=== PATIENT | female | born 1990 | race Caucasian/White ===

== ENCOUNTER 2017-08-22 05:44 | Emergency (ER) | payer OTHER ==
--- NOTE | 2017-08-22 06:05 | ER Report ---
History and Physical Time Seen By MD: 06:05 Hx. of Stated Complaint: patient states she has been having pain in left flank for a couple of days and then she woke up at 0300 with severe right flank pain, nausea and vomiting. patient also reports diarrhea. (OWEN FITCH MD) HPI/ROS CHIEF COMPLAINT: Right flank pain HISTORY OF PRESENT ILLNESS: This is a 27-year-old female. She has been having some pain in her left back for a couple of days, this is mild pain and she thought that she may have pulled a muscle or something while being active, however this morning at about 0300 hours she awoke with severe right flank pain which was higher up in her back and more severe. This was associated with nausea and vomiting. She also reported a little bit of diarrhea. Nothing makes the pain worse or better. It seems to be a little bit better right now. She is no longer having the nausea. She denies any abdominal pain. She is not short of breath and has no chest pain. No reported fevers or chills. No reported dysuria or urinary problems recently. (OWEN FITCH MD) Allergies: Coded Allergies: No Known Drug Allergies (Unverified , 08/22/17) Home Meds No Active Prescriptions or Reported Meds Reviewed Nurses Notes: Yes (OWEN FITCH MD) Constitutional Vital Sign - Last 24 Hours 08/22/17 08/22/17 08/22/17 08/22/17 05:48 06:00 06:14 06:29 Temp 97.7 Pulse 88 86 90 Resp 16 B/P (MAP) 120/83 106/61 (76) Pulse Ox 96 98 100 08/22/17 06:30 B/P (MAP) 108/71 (83) (DIEGO FOY MD) Physical Exam General Appearance: The patient is alert. Mild acute distress due to pain. Eyes: Pupils are equal, round. No pallor, injection or icterus. ENT: Mucous membranes are moist. Normal oral mucosa. Posterior oropharynx is normal. Neck: Supple and non-tender Respiratory: Lungs are clear to auscultation. Cardiovascular: Regular rate and rhythm. No murmurs, gallops or rubs. Gastrointestinal: Abdomen is soft and non tender. Nondistended. Normal active bowel sounds. Some right sided CVA tenderness. Neurological: Alert and oriented x3. No focal neurologic deficits Skin: Warm and dry. No rashes. Musculoskeletal: Extremities are nontender. Full range of motion. No tenderness in palpation of the cervical, thoracic and lumbar spine. DIFFERENTIAL DIAGNOSIS: After history and physical exam, differential diagnosis was considered for flank pain including but not limited to musculoskeletal causes, kidney stone, pyelonephritis, shingles, and intra-abdominal causes such as diverticulitis and appendicitis. (OWEN FITCH MD) Medical Decision Making Data Points Result Diagram: 08/22/17 0600 08/22/17 0600 Laboratory Hematology Test 08/22/17 06:00 08/22/17 07:24 Red Blood Count 4.34 M/uL (4.17-5.56) Mean Corpuscular Volume 92.9 fL (80.0-96.0) Mean Corpuscular Hemoglobin 32.3 pg (26.0-33.0) Mean Corpuscular Hemoglobin Concent 34.7 g/dL (32.0-36.0) Red Cell Distribution Width 12.8 % (11.5-14.5) Mean Platelet Volume 8.1 fL (7.2-11.1) Neutrophils (%) (Auto) 46.7 % (39.4-72.5) Lymphocytes (%) (Auto) 37.8 % (17.6-49.6) Monocytes (%) (Auto) 12.0 % (4.1-12.4) Eosinophils (%) (Auto) 2.6 % (0.4-6.7) Basophils (%) (Auto) 0.9 % (0.3-1.4) Nucleated RBC Relative Count (auto) 0.0 /100WBC Neutrophils # (Auto) 1.7 K/uL (2.0-7.4) Lymphocytes # (Auto) 1.4 K/uL (1.3-3.6) Monocytes # (Auto) 0.4 K/uL (0.3-1.0) Eosinophils # (Auto) 0.1 K/uL (0.0-0.5) Basophils # (Auto) 0.0 K/uL (0.0-0.1) Nucleated RBC Absolute Count (auto) 0.00 K/uL Sodium Level 138 mmol/L (137-145) Potassium Level 4.1 mmol/L (3.5-5.0) Chloride Level 104 mmol/L (98-107) Carbon Dioxide Level 22 mmol/L (22-31) Blood Urea Nitrogen 10 mg/dl (7-18) Creatinine 0.70 mg/dl (0.52-1.04) Glomerular Filtration Rate Calc > 60.0 Random Glucose 125 mg/dl (75-110) Lactate 1.1 mmol/L (0.7-2.1) Calcium Level 9.6 mg/dl (8.4-10.2) Total Bilirubin 1.1 mg/dl (0.2-1.3) Aspartate Amino Transf (AST/SGOT) 24 U/L (0-35) Alanine Aminotransferase (ALT/SGPT) 27 U/L (0-56) Alkaline Phosphatase 47 U/L (0-126) Total Protein 7.1 gm/dl (6.3-8.2) Albumin 4.2 g/dl (3.5-5.0) Amylase Level 51 U/L (0-110) Lipase 121 U/L (23-300) Human Chorionic Gonadotropin, Qual Negative (NEGATIVE) Urine Color Yellow Urine Clarity Clear Urine pH 5.0 pH (4.8-9.5) Urine Specific [place] 1.015 Urine Protein Negative mg/dL (NEGATIVE) Urine Glucose (UA) Negative mg/dL (NEGATIVE) Urine Ketones Trace mg/dL (NEGATIVE) Urine Blood Negative (NEGATIVE) Urine Nitrite Negative (NEGATIVE) Urine Bilirubin Negative (NEGATIVE) Urine Urobilinogen Negative mg/dL (0.2-1.9) Urine Leukocyte Esterase Negative (NEGATIVE) Urine RBC 1 /HPF (0-2/HPF) Urine WBC 1 /HPF (0-5/HPF) Urine Squamous Epithelial Cells Many /LPF (</=FEW) Urine Bacteria Negative /HPF (NONE-FEW) Urine Mucus Few /HPF (NONE-FEW) Chemistry Test 08/22/17 06:00 08/22/17 07:24 White Blood Count 3.6 k/uL (4.5-11.0) Red Blood Count 4.34 M/uL (4.17-5.56) Hemoglobin 14.0 g/dL (12.0-16.0) Hematocrit 40.3 % (34.0-47.0) Mean Corpuscular Volume 92.9 fL (80.0-96.0) Mean Corpuscular Hemoglobin 32.3 pg (26.0-33.0) Mean Corpuscular Hemoglobin Concent 34.7 g/dL (32.0-36.0) Red Cell Distribution Width 12.8 % (11.5-14.5) Platelet Count 241 K/uL (150-450) Mean Platelet Volume 8.1 fL (7.2-11.1) Neutrophils (%) (Auto) 46.7 % (39.4-72.5) Lymphocytes (%) (Auto) 37.8 % (17.6-49.6) Monocytes (%) (Auto) 12.0 % (4.1-12.4) Eosinophils (%) (Auto) 2.6 % (0.4-6.7) Basophils (%) (Auto) 0.9 % (0.3-1.4) Nucleated RBC Relative Count (auto) 0.0 /100WBC Neutrophils # (Auto) 1.7 K/uL (2.0-7.4) Lymphocytes # (Auto) 1.4 K/uL (1.3-3.6) Monocytes # (Auto) 0.4 K/uL (0.3-1.0) Eosinophils # (Auto) 0.1 K/uL (0.0-0.5) Basophils # (Auto) 0.0 K/uL (0.0-0.1) Nucleated RBC Absolute Count (auto) 0.00 K/uL Glomerular Filtration Rate Calc > 60.0 Lactate 1.1 mmol/L (0.7-2.1) Calcium Level 9.6 mg/dl (8.4-10.2) Total Bilirubin 1.1 mg/dl (0.2-1.3) Aspartate Amino Transf (AST/SGOT) 24 U/L (0-35) Alanine Aminotransferase (ALT/SGPT) 27 U/L (0-56) Alkaline Phosphatase 47 U/L (0-126) Total Protein 7.1 gm/dl (6.3-8.2) Albumin 4.2 g/dl (3.5-5.0) Amylase Level 51 U/L (0-110) Lipase 121 U/L (23-300) Human Chorionic Gonadotropin, Qual Negative (NEGATIVE) Urine Color Yellow Urine Clarity Clear Urine pH 5.0 pH (4.8-9.5) Urine Specific [place] 1.015 Urine Protein Negative mg/dL (NEGATIVE) Urine Glucose (UA) Negative mg/dL (NEGATIVE) Urine Ketones Trace mg/dL (NEGATIVE) Urine Blood Negative (NEGATIVE) Urine Nitrite Negative (NEGATIVE) Urine Bilirubin Negative (NEGATIVE) Urine Urobilinogen Negative mg/dL (0.2-1.9) Urine Leukocyte Esterase Negative (NEGATIVE) Urine RBC 1 /HPF (0-2/HPF) Urine WBC 1 /HPF (0-5/HPF) Urine Squamous Epithelial Cells Many /LPF (</=FEW) Urine Bacteria Negative /HPF (NONE-FEW) Urine Mucus Few /HPF (NONE-FEW) Urinalysis Test 08/22/17 07:24 Urine Color Yellow Urine Clarity Clear Urine pH 5.0 pH (4.8-9.5) Urine Specific [place] 1.015 Urine Protein Negative mg/dL (NEGATIVE) Urine Glucose (UA) Negative mg/dL (NEGATIVE) Urine Ketones Trace mg/dL (NEGATIVE) Urine Blood Negative (NEGATIVE) Urine Nitrite Negative (NEGATIVE) Urine Bilirubin Negative (NEGATIVE) Urine Urobilinogen Negative mg/dL (0.2-1.9) Urine Leukocyte Esterase Negative (NEGATIVE) Urine RBC 1 /HPF (0-2/HPF) Urine WBC 1 /HPF (0-5/HPF) Urine Squamous Epithelial Cells Many /LPF (</=FEW) Urine Bacteria Negative /HPF (NONE-FEW) Urine Mucus Few /HPF (NONE-FEW) (DIEGO FOY MD) EKG/Imaging Imaging Results: CT scan of the abdomen/pelvis was obtained. The results of the study are incidental finding of left iliac artery compressing iliac vein. The study was read by the radiologist. I viewed the images myself on the PACS system. (DIEGO FOY MD) ED Course/Re-evaluation Clinical Indication for ER IV: Hydration, IV Access [facility] ED Course This is a very pleasant 27-year-old female who presented to the emergency department early this morning with left and right sided flank pain. No pelvic pain and no urinary symptoms. A CT scan was obtained and shows no evidence of renal pathology. Only finding was an incidental finding of compression of the left iliac vein by the left iliac artery. The patient is feeling improved. Her UA is within normal limits and an hCG is negative. She currently does not have a primary care physician in [place] so I will give her a list of physicians so she can follow-up. Decision to Disposition Date: August 22, 2017 Decision to Disposition Time: 08:23 (DIEGO FOY MD) Depart Departure Latest Vital Signs Vital Signs Date Time Temp Pulse Resp B/P (MAP) Pulse Ox O2 Delivery O2 Flow Rate FiO2 08/22/17 06:30 108/71 (83) 08/22/17 06:29 90 100 08/22/17 05:48 97.7 16 (DIEGO FOY MD) Impression: Primary Impression: Flank pain, acute Condition: Improved Disposition: HOME OR SELF-CARE New Scripts No Active Prescriptions or Reported Meds Patient Instructions: Flank Pain (ED) OWEN FITCH MD August 22, 2017 06:05 DIEGO FOY MD August 22, 2017 08:25
[2017-08-22] MEDS ORDERED: NS(*) 0.9% 1000 ML BAG 1,000 ML IV ONE (06:15)
[2017-08-22 06:19] LABS: PLATELET COUNT, AUTOMATED 241 K/uL (150-450)
[2017-08-22] MEDS ORDERED: IOPAMIDOL 76% 75 ML INFUS BTL 75 ML ONE (06:24)
[2017-08-22] MEDS ORDERED: MORPHINE 2 MG/ML SYR IVP ONE (06:25)
[2017-08-22] MEDS ORDERED: ONDANSETRON 4 MG/2 ML VIAL IVP ONE (06:25)
--- NOTE | 2017-08-22 07:19 | RADIOLOGY IMAGING REPORT ---
FACILITY: [facility] PATIENT NAME: Glo Charles : 1990 MR: [id number] V: [id number] EXAM DATE: ORDERING PHYSICIAN: OWEN FITCH TECHNOLOGIST: Location: [facility] [place] Patient: Glo Charles : 1990 Visit/Account:[id number] Date of Sevice: 08/22/2017 ADDENDUM #1 Given the lack of venous thrombosis, rather than May-Thurner syndrome, the dilated adnexal vessels ma y simply be due to pelvic congestion syndrome. Report Dictated By: Grace Skinner at 08/23/2017 10:04 PM Report E-Signed By: Grace Skinner at 08/23/2017 10:05 PM ORIGINAL REPORT ABDOMEN/PELVIS WITH CONTRAST HISTORY: Right flank pain. COMPARISON: None. TECHNIQUE: Axial images were obtained from the lung bases through the symphysis pubis with intravenou s contrast. Sagittal and coronal reformats were performed. One of the following dose optimization techniques was utilized in the performance of this exam: Autom ated exposure control; adjustment of the mA and/or kV according to the patient's size; or use of an i terative reconstruction technique. Specific details can be referenced in the facility's radiology CT exam operational policy. CONTRAST: 75 mL IV Isovue-370. FINDINGS: Lower chest: Normal. Liver: Normal. Gallbladder/biliary: Normal. Pancreas: Normal. Spleen: Normal. Adrenals: Normal. Kidneys/ureters/bladder: Kidneys and ureters are normal. There is a tiny focus of gas in the bladder, presumed from catheterization. GI/mesentery/peritoneal cavity: There is no bowel obstruction. There is no wall thickening or pericol onic stranding. The appendix is normal. There is no intra-abdominal free air or free fluid. Vessels: No aneurysm or significant atherosclerotic disease. No dissection. Both ovarian veins are en larged, right more so than left. The left common iliac vein is being compressed by the right common i liac artery (image 84). No thrombus. Nodes: There are prominent mesenteric lymph nodes in the right lower quadrant. Pelvis: There are enlarged vessels in the adnexa. Uterus is normal. There are bilateral ovarian folli cles. The left is crenulated, compatible with involuting follicle. There is trace pelvic free fluid, likely physiologic. There are pelvic phleboliths. Bones/vertebra/soft tissues: There is mild wedging of T12 and L1, likely physiologic. IMPRESSION: 1. No hydronephrosis or obstructing calculus. 2. Normal appendix. 3. 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 No thrombus. Report Dictated By: Grace Skinner at 08/22/2017 6:57 AM Report E-Signed By: Grace Skinner at 08/22/2017 7:15 AM WSN:[id number]
[2017-08-22 08:30] VITALS: BP 106/59
== END 2017-08-22 08:33 | disposition home or self-care (01) ==
LOC: ER 05:47
DX: M54.9 Dorsalgia, unspecified (principal)
CPT/HCPCS: 74177; 81001; 82150; 83605; 83690; 84703; 85025; 96361; 96374; 96375; 99284; J2270; J2405; J7030; Q9967; 82040; 82247; 82310; 82374; 82435; 82565; 82947; 84075; 84132; 84155; 84295; 84450; 84460; 84520

== ENCOUNTER → 2018-06-07 | Outpatient (CLI) | payer OTHER ==
--- NOTE | 2018-06-07 15:17 | RADIOLOGY IMAGING REPORT ---
FACILITY: [facility] PATIENT NAME: Glo Charles : 1990 MR: [id number] V: [id number] EXAM DATE: ORDERING PHYSICIAN: CODI OATES TECHNOLOGIST: Location: [facility] [place] Patient: Glo Charles : 1990 Visit/Account:[id number] Date of Sevice: 06/07/2018 TRANSVAGINAL NON-OB HISTORY: Right lower quadrant pain, history of cysts TECHNIQUE: Transvaginal ultrasound pelvis. COMPARISON: CT abdomen pelvis August 22, 2017 FINDINGS: Uterus: ; 8.3 cm length x 3.3 cm AP x 5.8 cm transverse. Myometrium: Hypervascular. Endometrium: Bicornuate; double thickness 6.4 mm. Cervix: Grossly negative. Ovaries: Right - 3 x 2.4 x 3.5 cm. 1.7 cm simple cyst Left - 2.8 x 2 x 1.4 cm Blood flow is documented in each ovary by duplex Doppler ultrasound. Adnexa: Extremely prominent tortuous adnexal vessels bilaterally. Free pelvic fluid: None. IMPRESSION: Extremely prominent tortuous adnexal vessels bilaterally 1.7 cm simple right ovarian cyst. Myometrium appears hypervascular Bicornuate uterus Report Dictated By: Dorys Donahue MD at 06/07/2018 3:09 PM Report E-Signed By: Dorys Donahue MD at 06/07/2018 3:13 PM WSN:[id number]
== END ==
LOC: US 00:58
PROVIDERS: ATTEND Nurse Practitioner Family
DX: N83.8 Other noninflammatory disorders of ovary, fallopian tube and broad ligament (principal); N83.291 Other ovarian cyst, right side; N85.8 Other specified noninflammatory disorders of uterus; Q51.3 Bicornate uterus
CPT/HCPCS: 36415; 76830; 86304

== ENCOUNTER 2018-11-04 21:29 | Emergency (ER) | payer OTHER ==
--- NOTE | 2018-11-04 21:32 | ER Report ---
History and Physical Time Seen By MD: 21:28 HPI/ROS CHIEF COMPLAINT: Neck stiffness and pain HISTORY OF PRESENT ILLNESS: 28-year-old female presents with neck stiffness and pain for 2 days. She's been doing excessive biking with her head in extension. His rockclimbing, and she noticed that when she had the look out. She was unable to extend her neck. Patient notes no numbness, tingling or weakness in her upper extremities. Patient recalls no injury. Patient notes 4/10 neck pain with some decreased range of motion at the extremes. REVIEW OF SYSTEMS: Respiratory: No cough, no dyspnea. Cardiovascular: No chest pain, no palpitations. Gastrointestinal: No vomiting, no abdominal pain. Musculoskeletal: As above Allergies: Coded Allergies: No Known Drug Allergies (Unverified , 11/04/18) Home Meds Active Scripts Methocarbamol (ROBAXIN-750) 750 Mg Tablet, 1 TAB PO TID PRN for muscle spasm relief, #20 Prov:FELIPE CARRINGTON Jerry DO 11/04/18 Reviewed Nurses Notes: Yes Old Medical Records Reviewed: Yes Constitutional Vital Sign - Last 24 Hours 11/04/18 21:33 Temp 99.0 Pulse 81 Resp 16 B/P (MAP) 148/94 Pulse Ox 98 O2 Delivery Room Air Physical Exam General Appearance: The patient is alert, has no immediate need for airway protection and no current signs of toxicity. Vital signs stable, afebrile Eyes: Pupils equal and round no injection. Respiratory: Chest is non tender, lungs are clear to auscultation. Cardiac: regular rate and rhythm Gastrointestinal: Abdomen is soft and non tender, no masses, bowel sounds normal. Musculoskeletal: Neck: Neck is supple and mild cervical spasm and tenderness. There is no lymphadenopathy. Extremities have full range of motion and are non tender. Skin: No rashes or lesions. Neuro is nonfocal in the upper extremities. DIFFERENTIAL DIAGNOSIS: After history and physical exam differential diagnosis was considered for cervical spasm, cervical strain, degenerative disc disease, torticollis, right neck Medical Decision Making ED Course/Re-evaluation ED Course Patient was minute to an examination room. H&P was done. The differential diagnoses was considered. On clinical examination. Patient has a nonfocal neurologic examination. Her clinical presentation is consistent with a cervical strain. Conservative treatment plan as prescribed. Patient's advised high-dose ibuprofen. She's placed on Robaxin. 750 mg 3 times a day. She is advised to follow-up with primary care if unimproved in 3-5 days. She may require physical therapy. Decision to Disposition Date: Nov 04, 2018 Decision to Disposition Time: 21:48 Depart Departure Latest Vital Signs Vital Signs Date Time Temp Pulse Resp B/P (MAP) Pulse Ox O2 Delivery O2 Flow Rate FiO2 11/04/18 21:33 99.0 81 16 148/94 98 Room Air Impression: Primary Impression: Cervical strain, acute Condition: Improved Disposition: HOME OR SELF-CARE Referrals: CODI OATES (PCP) New Scripts Methocarbamol (ROBAXIN-750) 750 Mg Tablet 1 TAB PO TID PRN for muscle spasm relief, #20 Prov: FELIPE CARRINGTON DO 11/04/18 Patient Instructions: Cervical Strain (ED) Additional Instructions: Take ibuprofen 200 mg 3-4 tablets 3 times a day with food Take a muscle relaxant. 3 times a day Apply heating pad to your neck muscles to help him relax Follow-up with your primary care if unimproved in 3-5 days. He may benefit from some physical therapy or further diagnostic studies. Problem Qualifiers Primary Impression: Cervical strain, acute Encounter type: initial encounter Qualified Codes: S16.1XXA - Strain of muscle, fascia and tendon at neck level, initial encounter FELIPE CARRINGTON DO Nov 04, 2018 21:32
[2018-11-04 21:33] VITALS: BP 148/94
[2018-11-04] MEDS ORDERED: METH-543 PO (21:53)
[2018-11-04] MEDS ORDERED: METHOCARBAMOL 500 MG TAB PO ONE (21:55)
== END 2018-11-04 21:59 | disposition home or self-care (01) ==
LOC: ER 21:57
DX: S16.1XXA Strain of muscle, fascia and tendon at neck level, initial encounter (principal)
CPT/HCPCS: 99283